=== PATIENT | female | born 1940 | race Caucasian/White ===

== ENCOUNTER 2016-08-04 09:10 | Day surgery (SDC) | payer MEDICARE ==
[~2016-08-04 09:10] MED LIST: ALPRAZolam 0.25 MG TAB PO PRN; ALPRAZolam 0.5 MG TAB PO PRN; ASPIRIN 325 MG TAB PO STA; ATORVASTATIN 80 MG TAB PO STA; NITROGLYCERIN SL TABS 0.4 MG TAB SUBLINGUAL PRN; SODIUM CHLORIDE 0.9% 1,000 ML in EMPTY BAG 1 BAG IV ONE
[2016-08-04 10:11] LABS: Calcium 9.6 mg/dL (8.4-10.2); Potassium 4.4 mmol/L (3.5-5.1)
[2016-08-04 10:17] VITALS: TEMP 98.3
[2016-08-04] MEDS ORDERED: LIDOCAINE 2% INJ 20 MG/ML (20 ML MDV) ONE (10:50)
[2016-08-04 10:55] LABS: Basophils # (A) 0.1 k/uL (0-0.2); Basophils % (A) 1 %; CH 28.1; CHCM 30.3; Eosinophils # (A) 0.6 k/uL (0-0.7); Eosinophils % (A) 9 %; HCT 38.6 % (34.0-46.0); HDW 2.54; HGB 11.8 gm/dL (11.4-16.0); Hypochromasia Moderate; Luc # (Auto) 0.16; Luc % (Auto) 2; Lymphocytes # (A) 1.1 k/uL (1.0-4.8); Lymphocytes % (A) 17 %; MCH 28.5 pg (25.0-35.0); MCHC 30.6 g/dL (31.0-37.0); MCV 93.2 fL (80.0-100.0); Mean Platelet Volume 8.6; Monocytes # (A) 0.3 k/uL (0-1.0); Monocytes % (A) 5 %; Neutrophils # (A) 4.5 k/uL (1.3-7.7); Neutrophils % (A) 66 %; RBC 4.15 m/uL (3.80-5.40); RDW 14.6 % (11.5-15.5); WBC 6.7 k/uL (3.8-10.6); WBC (Perox) 6.75
[2016-08-04] MEDS ORDERED: MIDAZOLAM 2 MG/2 ML VIAL ONE (11:18)
[2016-08-04] MEDS ORDERED: diphenhydrAMINE 50 MG/ML 1 ML VIAL ONE (11:19)
[2016-08-04] MEDS ORDERED: diphenhydrAMINE 50 MG/ML 1 ML VIAL IVP ONE ×2 (11:20→11:22)
[2016-08-04] MEDS ORDERED: MIDAZOLAM 2 MG/2 ML VIAL IVP ONE ×2 (11:20→11:21)
[2016-08-04] MEDS ORDERED: LIDOCAINE 2% INJ 20 MG/ML SQ ONE (11:22)
[2016-08-04] MEDS ORDERED: NITROGLYCERIN SL TABS 0.4 MG TAB SUBLINGUAL ONE ×2 (11:26→11:27)
[2016-08-04] MEDS ORDERED: IODIXANOL 320 MG/ML 100 ML IV ONE (11:43)
[2016-08-04] MEDS ORDERED: SODIUM CHLORIDE 0.9% 1,000 ML IV ONE (11:48)
[2016-08-04] MEDS ORDERED: RX INFO: IV CONTRAST WAS GIVEN 1 EACH MISC MISCELLANE PRN (12:00)
[2016-08-04] MEDS ORDERED: SODIUM CHLORIDE 0.9% 1,000 ML IV SCH (12:00)
[2016-08-04 15:43] VITALS: RESP 16
[2016-08-04 16:53] VITALS: BP 125/59
[2016-08-04 16:54] VITALS: PULSE 74
[2016-08-04] MEDS ORDERED: ATORVASTATIN 40 MG TAB PO SCH (21:00)
--- NOTE | 2016-08-04 22:42 | CC ---
DATE OF SERVICE: 08/04/2016 PROCEDURE: Left heart catheterization and coronary angiography. PERFORMED BY: Dr. Shena Bear. CLINICAL INFORMATION: Mrs. Malia Garcia is a 75-year-old lady with a known history of hypertension and hypercholesterolemia, who was seen by me in the office and I canceled a stress test that was scheduled then because of clinical evidence of significant aortic stenosis. She was advised coronary angiography and HUMPHREY and brought in for the procedure electively. Risks, benefits, options and rationale were discussed. PROCEDURE NOTE: Under local anesthesia and strict aseptic precautions, a 6 Maltese introducer was placed in the right femoral artery. I used initially a standard Marcello catheter, performed coronary angiography, but for the left coronary, I had to use a 3.5 curved catheter. I then used an Amplatz I catheter and with a regular guidewire, I crossed the lesion and checked pressures, but did not perform an LV gram. The catheter and sheath were taken out and Angio-Seal device used to secure hemostasis and she was sent to the room in stable condition. Results were discussed with the patient and her daughter. CARDIAC CATHETERIZATION FINDINGS: The left ventricular end-diastolic pressure was 22 mmHg. The peak pullback gradient across aortic valve a 72 mmHg, suggestive of severe aortic stenosis. CORONARY ANGIOGRAPHIC FINDINGS: Right coronary artery: Technically a dominant vessel, which has a 95% stenosis involving the proximal one third of the vessel in 3 separate areas and then the caliber of the vessel improves. It gives off a larger PLV, smaller PDA, both of which supply a fair amount of myocardium. The RCA is dominant, has a 95% proximal stenosis. Left main coronary artery: Mild to moderate calcification. No significant disease. Bifurcates into LAD and circumflex. Left anterior descending coronary artery: Good caliber vessel, extends along the anterior wall, has moderate to heavy calcification in the midportion, gives off a diagonal branch that has a 70% ostial stenosis and then the LAD in the midportion before and after the diagonal branch is heavily calcified, has about a 40% to 50% narrowing and distally runs all the way to the apex, supplying a sizable amount of myocardium. LAD is a graftable vessel, has a 50% to 55% mid lesion, 70% ostial lesion of the diagonal, which is also a graftable vessel with a decent caliber and size. Left posterior circumflex coronary artery: Technically a nondominant vessel that has a proximal stenosis of 70% to 80%, gives off a large obtuse marginal and then continues in the AV groove. The continuation of the circumflex in the AV groove is noted and it gives off a left atrial circumflex branch, but distally this vessel is occluded and fills somewhat late. This is a small branch and seems to fill from a [id number]-vm-lwpr collateral superior to the circumflex branch that is occluded, is actually a continuation of the groove branch after the obtuse marginal. The caliber of the vessel that opacified is somewhat slow, but the first obtuse marginal is a large graftable vessel. LEFT VENTRICULOGRAM: This was not performed. FINAL IMPRESSION: This patient has severe aortic stenosis with a peak gradient on pullback of about 72 mmHg. There is significant triple-vessel disease with a 95% proximal right coronary artery stenosis, 70% to 80% proximal circumflex nondominant stenosis with a distal occlusion of the groove branch, which not graftable, but obtuse marginal is graftable. Mid left anterior descending artery has a 55% heavily calcified lesion and a 70% diagonal lesion, which is graftable. RECOMMENDATIONS: I am recommending an aortic valve replacement with a separate graft to the diagonal, probably to LAD, circumflex marginal and distal RCA. Findings were discussed with the patient and her daughter in great detail and I have left a message for Dr. Dominguez to see the patient electively in about a week or so and to perform surgery. Patient had a carotid Doppler performed and did not reveal any hemodynamically significant lesions and this report was also enclosed for Dr. Dominguez.
--- NOTE | 2016-08-04 22:44 | LTR ---
August 04, 2016 RE: Malia Garcia Dear Dr. Arcos: Thank you for the opportunity to participate in the care of Mrs. Lama. Please find enclosed my detailed cardiac cath report for your records. This lady has significant severe aortic stenosis and triple vessel disease and I am recommending aortic valve replacement with a tissue valve and 3 to 4 bypass grafts. She will be seen by Dr. Dominguez hopefully next week. In the meantime, we will continue same medications and I have added Lipitor 40 mg daily to her regimen. I have advised her not to do any strenuous activity. Thank you for your referral and please call for questions. With kindest regards. Sincerely yours, MALLORY SHEFFIELD MD
--- NOTE | 2016-08-05 07:46 | ECHOF ---
Referral Reason:pain/shortness of breath/post procedure MEASUREMENTS -------- HEIGHT: 152.4 cm WEIGHT: 51.7 kg BP: 127/61 RVIDd: 1.9 cm (< 3.3) IVSd: 1.2 cm (0.6 - 1.1) LVIDd: 3.4 cm (3.9 - 5.3) LVPWd: 1.2 cm (0.6 - 1.1) IVSs: 1.5 cm LVIDs: 2.4 cm LVPWs: 1.4 cm LA Diam: 3.0 cm (2.7 - 3.8) LAESV Index (A-L): 26.00 ml/m Ao Diam: 3.1 cm (2.0 - 3.7) AV Cusp: 2.1 cm (1.5 - 2.6) MV EXCURSION: 16.139 mm (> 18.000) MV EF SLOPE: 45 mm/s (70 - 150) EPSS: 0.5 cm MV E Jesus: 1.21 m/s MV DecT: 226 ms MV A Jesus: 1.05 m/s MV E/A Ratio: 1.15 AV maxP.82 mmHg AV meanP.19 mmHg AR PHT: 745 ms RAP: 5.00 mmHg RVSP: 44.82 mmHg FINDINGS -------- Sinus rhythm. This was a technically good study. The left ventricular size is normal. There is borderline concentric left ventricular hypertrophy. Overall left ventricular systolic function is normal with, an EF between 60 - 65 %. The right ventricle is normal in size and function. Normal LA size by volume 22+/-6 ml/m2. The right atrium is normal in size. Aortic valve is trileaflet and is severely thickened. There is mild aortic regurgitation. There is severe aortic stenosis present. Peak/mean gradient across the Aortic Valve is 81.82mmHg / 43.19mmHg. The mitral valve leaflets are mildly thickened. Mild mitral annular calcification present. [id number] mitral regurgitation is present. Mild tricuspid regurgitation present. There is mild pulmonary hypertension. The right ventricular systolic pressure, as measured by Doppler, is 44.82mmHg. The pulmonic valve was not well visualized. The aortic root size is normal. Normal inferior vena cava with normal inspiratory collapse consistent with estimated right atrial pressure of 5 mmHg. There is no pericardial effusion. CONCLUSIONS -------- 1. Sinus rhythm. 2. There is mild aortic regurgitation. 3. There is severe aortic stenosis present. 4. Peak/mean gradient across the Aortic Valve is 81.82mmHg / 43.19mmHg. 5. The mitral valve leaflets are mildly thickened. 6. Mild mitral annular calcification present. 7. Tjtc-gk-[id number] mitral regurgitation is present. 8. Mild tricuspid regurgitation present. 9. There is mild pulmonary hypertension. 10. The right ventricular systolic pressure, as measured by Doppler, is 44.82mmHg. 11. The pulmonic valve was not well visualized. 12. This was a technically good study. 13. The aortic root size is normal. 14. Normal inferior vena cava with normal inspiratory collapse consistent with estimated right atrial pressure of 5 mmHg. 15. There is no pericardial effusion. 16. The left ventricular size is normal. 17. There is borderline concentric left ventricular hypertrophy. 18. Overall left ventricular systolic function is normal with, an EF between 60 - 65 %. 19. The right ventricle is normal in size and function. 20. Normal LA size by volume 22+/-6 ml/m2. 21. The right atrium is normal in size. 22. Aortic valve is trileaflet and is severely thickened. SOAPING DEPARTMENT SUPERVISOR: Marisela Houston RDCS
== END 2016-08-04 18:47 | disposition home or self-care (01) ==
LOC: CATHCVL 09:10 → 3OBS 11:56 → CATHCVL 18:47
PROVIDERS: ATTEND Internal Medicine Interventional Cardiology
DX: I35.0 Nonrheumatic aortic (valve) stenosis (principal); I25.10 Atherosclerotic heart disease of native coronary artery without angina pectoris; I27.2 Other secondary pulmonary hypertension; I10 Essential (primary) hypertension; E78.00 Pure hypercholesterolemia, unspecified; M19.91 Primary osteoarthritis, unspecified site; H40.9 Unspecified glaucoma; Z79.1 Long term (current) use of non-steroidal anti-inflammatories (NSAID); Z79.899 Other long term (current) drug therapy; Z87.891 Personal history of nicotine dependence
CPT/HCPCS: 93306; 93458; 80048; 85025; C1760; C1769 ×3; C1894; J2001; J2250; J1200; Q9967

== ENCOUNTER 2016-08-08 09:48 | Emergency (ER) | payer MEDICARE ==
[2016-08-08 09:52] VITALS: BP 130/60; PULSE 65; RESP 20; TEMP 97.8
--- NOTE | 2016-08-08 10:01 | ED ---
General Adult HPI - General Chief complaint: Recheck/Abnormal Lab/Rx Stated complaint: post op infection Time Seen by Provider: 08/08/16 09:53 Source: patient, RN notes reviewed Mode of arrival: ambulatory Limitations: no limitations - History of Present Illness Initial comments: 75-year-old female presented emergency department for recheck of right leg. Patient states she had a heart cath on Wednesday. Patient states she noticed some redness, bruising to her leg with no pain. She denies any swelling. She states that her daughter just wanted to make sure this was checked. Patient states the bruising is in her thigh region. She has no swelling or pain at the site or in her normal region. Patient denies any paresthesias. Patient states she always bruises easily. Patient has fever, chills. - Related Data Home Medications Medication Instructions Recorded Confirmed Atenolol [Tenormin] 50 mg PO HS 07/30/16 07/30/16 Bimatoprost [Lumigan .01% Ophth 1 drop BOTH EYES HS 07/30/16 07/30/16 Soln] Calcium Carbonate/Vitamin D3 1 each PO DAILY 07/30/16 07/30/16 [Calcium 600-Vit D3 800 Tab] Dorzolamide-Timolol 2%/0.5% 1 drop BOTH EYES BID 07/30/16 07/30/16 [dorzolamide-Timolol 2%/0.5%] Lisinopril [Prinivil] 10 mg PO HS 07/30/16 07/30/16 Naproxen Sodium (Otc, Unsure Dose) 1 tab PO DAILY 07/30/16 Pilocarpine 1% Ophth Soln [Isopto 1 drops BOTH EYES BID 07/30/16 07/30/16 Carpine 1%] acetaZOLAMIDE [Diamox Sequels] 500 mg PO DAILY 07/30/16 07/30/16 amLODIPine BESYLATE [Norvasc] 5 mg PO HS 07/30/16 07/30/16 Previous Rx's Medication Instructions Recorded Atorvastatin Calcium [Lipitor] 40 mg PO HS #60 tablet 08/04/16 Nitroglycerin Sl Tabs [Nitrostat] 0.4 mg SUBLINGUAL Q5M PRN #0 tab 08/04/16 Allergies Allergy/AdvReac Type Severity Reaction Status Date / Time No Known Allergies Allergy Verified 08/08/16 09:52 Review of Systems ROS Statement: Those systems with pertinent positive or pertinent negative responses have been documented in the HPI. ROS Other: All systems not noted in ROS Statement are negative. Past Medical History Past Medical History: Coronary Artery Disease (CAD), Chest Pain / Angina, Eye Disorder, Hearing Disorder / Deafness, Hypertension, Osteoarthritis (OA), Respiratory Disorder Additional Past Medical History / Comment(s): RECENT ABN EKG. OCC CP, SHORTNESS OF BREATH. HX SEASONAL BRONCHITIS.GLAUCOMA. GETS DIZZY IF LYING FLAT FOR TOO LONG. History of Any Multi-Drug Resistant Organisms: None Reported Past Surgical History: Heart Catheterization Additional Past Surgical History / Comment(s): EXC CATARACTS. HEART CATH, TEAR DUCT STENT TO HER LEFT EYE Past Anesthesia/Blood Transfusion Reactions: Motion Sickness Past Psychological History: No Psychological Hx Reported Additional Psychological History / Comment(s): STRESS R/T DAUGHTER'S FAMILY PROBLEMS Smoking Status: Former smoker Past Alcohol Use History: None Reported Additional Past Alcohol Use History / Comment(s): SMOKED 50 YEARS, 1 PPD, QUIT 2010 Past Drug Use History: None Reported - Past Family History Mother Family Medical History: No Reported History General Exam Limitations: no limitations General appearance: alert, in no apparent distress Head exam: Present: atraumatic, normocephalic, normal inspection Respiratory exam: Present: normal lung sounds bilaterally. Absent: respiratory distress, wheezes, rales, rhonchi, stridor Cardiovascular Exam: Present: regular rate, normal rhythm, normal heart sounds. Absent: systolic murmur, diastolic murmur, rubs, gallop, clicks Extremities exam: Present: other (Right groin, more region there is a large amount of ecchymosis with no swelling and no tenderness there is no warmth there is no erythema. The leg is neurovascularly intact.) Course Vital Signs 08/08/16 09:50 Temperature 97.8 F Pulse Rate 65 Respiratory 20 Rate Blood Pressure 130/60 O2 Sat by Pulse 98 Oximetry Medical Decision Making - Medical Decision Making 75-year-old female presented emergency from her recheck right leg. Patient has area of ecchymosis status post heart cath 4 days ago. There is no evidence of pain, swelling to the site there is no concerns for pseudoaneurysm. There is no concerning for infection. Patient has normal ecchymosis after heart cath. Patient will be discharged at this time. Disposition Clinical Impression: Ecchymosis Disposition: HOME SELF-CARE Condition: Stable Instructions: Ecchymosis (ED) Additional Instructions: Please return to the Emergency Department if symptoms worsen or any other concerns. Referrals: Enoch Arcos MD [Primary Care Provider] - 1-2 days Time of Disposition: 10:01
== END 2016-08-08 10:20 | disposition home or self-care (01) ==
LOC: EC 09:48
DX: S70.11XA Contusion of right thigh, initial encounter (principal); Z98.890 Other specified postprocedural states; X58.XXXA Exposure to other specified factors, initial encounter; I25.10 Atherosclerotic heart disease of native coronary artery without angina pectoris; I10 Essential (primary) hypertension; M19.90 Unspecified osteoarthritis, unspecified site; H40.9 Unspecified glaucoma; Z79.1 Long term (current) use of non-steroidal anti-inflammatories (NSAID); Z79.899 Other long term (current) drug therapy; Z87.891 Personal history of nicotine dependence
CPT/HCPCS: 99283

== ENCOUNTER → 2016-09-03 | Outpatient (CLI) | payer MEDICARE ==
[2016-09-03 08:50] LABS: EKG EKG PERFORMED
[2016-09-03 09:57] LABS: INR 1.1 (<1.1); Partial Thromboplastin Time 24.3 sec (22.0-30.0); Prothrombin Time 10.8 sec (9.0-12.0)
[2016-09-03 10:00] LABS: CHCM 30.4; HCT 33.1 % (34.0-46.0); HGB 10.2 gm/dL (11.4-16.0); Hypochromasia Moderate; MCH 28.5 pg (25.0-35.0); MCHC 30.8 g/dL (31.0-37.0); MCV 92.5 fL (80.0-100.0); Mean Platelet Volume 9.8; RBC 3.58 m/uL (3.80-5.40); RDW 14.5 % (11.5-15.5); WBC 5.5 k/uL (3.8-10.6)
[2016-09-03 10:06] LABS: ALT 43 U/L (9-52); AST 31 U/L (14-36); Alkaline Phosphatase 85 U/L (38-126); Anion Gap 11 mmol/L; Blood Urea Nitrogen 27 mg/dL (7-17); Calcium 9.6 mg/dL (8.4-10.2); Carbon Dioxide 21 mmol/L (22-30); Chloride 111 mmol/L (98-107); Cholesterol 146 mg/dL (<200); Glucose 91 mg/dL (74-99); HDL Cholesterol 65 mg/dL (40-60); Non-African American GFR(MDRD) 40 (>60 ml/min/1.73 sqM); Potassium 4.8 mmol/L (3.5-5.1); Sodium 143 mmol/L (137-145); Total Bilirubin 0.7 mg/dL (0.2-1.3); Total Protein 6.8 g/dL (6.3-8.2); Triglycerides 85 mg/dL (<150)
[2016-09-03 10:50] LABS: Appearance,Urine Cloudy (Clear); Bacteria,Urine Many /hpf; Bilirubin,Urine Negative (Negative); Glucose,Urine (UA) Negative (Negative); Ketones,Urine Negative (Negative); Leukocyte Esterase,Urine Large (Negative); Mucus,Urine Rare /hpf; Nitrite,Urine Positive (Negative); Particle Count 56111; Protein,Urine Trace (Negative); RBC,Urine 24 /hpf (0-5); Specific Gravity,Urine 1.012 (1.001-1.035); Squamous Epithelial Cell,Urine 12 /hpf (0-4); UA Billing (MACRO vs. MICRO) MICRO; Urobilinogen,Urine <2.0 mg/dL (<2.0); WBC,Urine 124 /hpf (0-5)
--- NOTE | 2016-09-03 10:59 | XR ---
EXAMINATION TYPE: XR chest 2V DATE OF EXAM: 09/03/2016 10:54 AM COMPARISON: 11/21/2008 TECHNIQUE: PA and lateral views submitted. HISTORY: Preop FINDINGS: The lungs are clear and there is no pneumothorax, pleural effusion, or focal pneumonia. Heart is ma rkedly enlarged. Hypertrophic and degenerative change of the spine. Hyperinflation suggests COPD. Hillary pical pleural thickening noted. Linear changes at the right lung base compatible scarring or atelecta sis. IMPRESSION: 1. No acute process. Stable cardiomegaly.
[2016-09-03 12:15] LABS: Hemoglobin A1C 5.5 % (4.2-6.1)
[2016-09-03 15:17] LABS: Hepatitis B Surface Ag Index 0.06
[2016-09-03 15:23] LABS: Hepatitis B Core IgM Index 0.04
[2016-09-03 15:34] LABS: Hepatitis C Virus IgG Index 0.03
[2016-09-03 15:49] LABS: Hepatitis C Virus IgG Ab Negative (Negative)
--- NOTE | 2016-09-09 14:03 | P.VSCSTY ---
Greater Saphenous Vein Mapping This is bilateral lower extremity greater saphenous vein mapping. Date of service 09/03/2016 Vein quality and ultrasound appearance both greater saphenous veins appear to be very small, especially in the lower leg. The upper thighs May be adequate. Close of the knee they get very anterior.. Vein size groin right 5.8 x 4.3 groin left 8.0 x 5.9 High thigh right 2.6 x 2.3 high thigh left 2.9 x 3.0 Mid thigh right 2.2 x 1.7 mid thigh left 3.4 x 2.8 Above-knee right moves anterior 2.2 x 1.9 above-knee left moves anterior 3.8 x 3.0 Below knee right anterior 2.3 x 1.5 below-knee left anterior 2.3 x 2.2 Mid calf right 2.1 x 1.6 mid calf left 2.2 x 1.8 Ankle right 2.0 x 1.9 ankle left 1.9 x 1.7 Impression small greater saphenous veins bilaterally. Mid and upper thighs may be usable. There may be some usable vein in the anterior branch of the left in the area about the knee. Very questionable vein throughout..
--- NOTE | 2016-09-09 14:04 | P.ARTDOP ---
Arterial Doppler LOWER EXTREMITY ARTERIAL DOPPLER: DATE OF SERVICE: 09/03/2016 Reason for study: Pre-CABG. Doppler waveforms: Multiphasic to the ankle level bilaterally.. Pulse volume recording: []. Pressure gradients: None significant. Ankle-brachial indices: 0.87 on the right and 1.05 on the left. Toe pressures: [] on the right, [] on the left Impression: Possible mild right SFA disease. Normal study otherwise..
== END | disposition home or self-care (01) ==
LOC: LABPAT 08:44
PROVIDERS: ATTEND Thoracic Surgery (Cardiothoracic Vascular Surgery)
DX: Z01.818 Encounter for other preprocedural examination (principal); I51.7 Cardiomegaly
CPT/HCPCS: 71020; 80053; 80061; 80074; 81001; 83036; 83735; 83880; 84443; 84484; 85027; 85610; 85730; 86850; 86900; 86901; 86920; 87070; 87077; 87086; 87186; 93005; 93923; 93970; 94150

== ENCOUNTER 2016-09-08 05:50 | Inpatient (IN) | payer MEDICARE ==
[2016-09-03 09:59] VITALS: BMI 22.4
[~2016-09-08 05:50] MED LIST changes: +ALBUMIN HUMAN 25% 50 ML IV ONE; +ALBUMIN HUMAN 5% 500 ML IVPB ONE; -ALPRAZolam 0.25 MG TAB PO PRN; -ALPRAZolam 0.5 MG TAB PO PRN; +AMINOCAPROIC ACID 250 MG/ML 20 ML VIAL IV ONE; +AMINOCAPROIC ACID 5,000 MG in DEXTROSE 5% IN WATER 50 ML IV ONE; -ASPIRIN 325 MG TAB PO STA; +ASPIRIN 81 MG CHEW PO ONE; +ATORVASTATIN 10 MG TAB PO ONE; -ATORVASTATIN 80 MG TAB PO STA; +CALCIUM CHLORIDE 100 MG/ML 10 ML SYRINGE IV ONE; +CHLORHEXIDINE GLUCONATE 15 ML CUP MUCOUS MEM ONE; +CLEVIDIPINE BUTYRATE 25 MG in EMPTY BAG 1 BAG IV ONE; +DEXTROSE 5% IN WATER 1,000 ML with POTASSIUM CHLORIDE 110 MEQ, MAGNESIUM SULFATE 16 MEQ... IV ONE; +DEXTROSE 5% IN WATER 1,000 ML with POTASSIUM CHLORIDE 25 MEQ, SODIUM CHLORIDE 4MEQ/ML V... IV ONE; +HEPARIN SODIUM 1,000 UNIT/ML VIAL IV ONE; +HEPARIN SODIUM,PORCINE 5,000 UNIT in SODIUM CHLORIDE 0.9% 500 ML IV ONE; +INSULIN REGULAR 100 UNIT in SODIUM CHLORIDE 0.9% 100 ML IV ONE; +LACTATED RINGERS 1,000 ML IV ONE; +MAGNESIUM SULFATE MG 500 MG/ML VIAL IV ONE; +MANNITOL 25% 12.5 GM/50 ML VIAL IV ONE; +METOPROLOL TARTRATE 12.5 MG TAB PO ONE; +MUPIROCIN 2% OINT 22 GM TUBE NASAL ONE; -NITROGLYCERIN SL TABS 0.4 MG TAB SUBLINGUAL PRN; +NITROGLYCERIN-D5W PMX 25 MG/250 ML BTL IV ONE; +NITROGLYCERIN-D5W PMX 50 MG in DEXTROSE/WATER 1 250ML.BAG IV ONE; +NOREPINEPHRINE 4 MG in SODIUM CHLORIDE 0.9% 250 ML IV ONE; +PAPAVERINE 360 MG in SODIUM CHLORIDE 0.9% 90 ML IV ONE; +PHENYLEPHRINE 40 MG in SODIUM CHLORIDE 0.9% 250 ML IV ONE; +PHENYLEPHRINE-0.9% NACL SYG 1 MG/10 ML SYRINGE IV ONE; +PROPOFOL 50 ML IV ONE; +PROTAMINE SULFATE 10 MG/ML 25 ML VIAL IV ONE; +PROTAMINE SULFATE 250 MG in EMPTY BAG 1 BAG IV ONE; +SODIUM BICARB 8.4% 50 ML SYR (1 MEQ/ML) IV ONE; +SODIUM CHLORIDE 0.9% 1,000 ML IV ONE; -SODIUM CHLORIDE 0.9% 1,000 ML in EMPTY BAG 1 BAG IV ONE; +SODIUM CHLORIDE 0.9% MISCELLANE ONE; +THROMBIN MISCELLANE ONE; +VANCOMYCIN 500 MG MISCELLANE ONE; +[UNRECOGNIZED DRUG - OTHER] MISCELLANE ONE; +ceFAZolin 1,000 MG in SODIUM CHLORIDE 0.9% IRRIGATIO 1,000 ML IRRIGATION ONE; +ceFAZolin 2,000 MG in SODIUM CHLORIDE 0.9% 30 ML IVPB ONE
[2016-09-08 06:26] VITALS: BP 132/60; PULSE 62; RESP 16; TEMP 98.6
[2016-09-08] MEDS ORDERED: ALBUMIN HUMAN 5% 250 ML BOTTLE IVPB ONE (08:29)
[2016-09-08] MEDS ORDERED: SODIUM BICARB 8.4% 50 ML SYR (1 MEQ/ML) ONE (08:29)
[2016-09-08] MEDS ORDERED: fentaNYL (PF) 50 MCG/ML 50 ML VIAL ONE (08:29)
[2016-09-08] MEDS ORDERED: HEPARIN SODIUM 1,000 UNIT/ML VIAL ONE (08:29)
[2016-09-08] MEDS ORDERED: ceFAZolin 1,000 MG VIAL ONE (08:29)
[2016-09-08] MEDS ORDERED: HEPARIN SODIUM,PORCINE 10,000 UNIT/ML 1 ML VIAL ONE (08:29)
[2016-09-08] MEDS ORDERED: SODIUM CHLORIDE 0.9% IRRIG 1,000 ML BTL IRRIGATION ONE (08:29)
[2016-09-08] MEDS ORDERED: PROTAMINE SULFATE 10 MG/ML 25 ML VIAL IV ONE (08:29)
[2016-09-08] MEDS ORDERED: ELECTROLYTE-R (PH 7.4) 1,000 ML IV.SOLN IV ONE (08:29)
[2016-09-08] MEDS ORDERED: ePHEDrine 50 MG/ML 1 ML AMP ONE (08:29)
[2016-09-08] MEDS ORDERED: PHENYLEPHRINE-0.9% NACL SYG 1 MG/10 ML SYRINGE ONE (08:29)
[2016-09-08] MEDS ORDERED: fentaNYL (PF) 50 MCG/ML 2 ML AMP ONE (08:29)
[2016-09-08] MEDS ORDERED: MIDAZOLAM 2 MG/2 ML VIAL ONE (08:29)
[2016-09-08] MEDS ORDERED: MAGNESIUM SULFATE 4 MEQ/ML 2 ML VIAL ONE (08:29)
[2016-09-08] MEDS ORDERED: CALCIUM CHLORIDE 100 MG/ML 10 ML SYRINGE ONE (08:29)
[2016-09-08] MEDS ORDERED: ETOMIDATE 2 MG/ML 10 ML VIAL ONE (08:29)
[2016-09-08] MEDS ORDERED: LIDOCAINE 2% SYG (PF) 100 MG/5 ML ONE (08:29)
[2016-09-08] MEDS ORDERED: SUCCINYLCHOLINE CHLORIDE 100 MG/5 ML SYR IV ONE (08:29)
[2016-09-08] MEDS ORDERED: VECURONIUM 10 MG VIAL IV ONE (08:29)
[2016-09-08] MEDS ORDERED: HEPARIN SODIUM,PORCINE 5,000 UNIT/ML 1 ML VIAL ONE (08:29)
[2016-09-08 08:57] LABS: Glucose,Whole Blood 101 mg/dL (75-99)
[2016-09-08] MEDS ORDERED: DILTIAZEM 125 MG in SODIUM CHLORIDE 0.9% 100 ML IV SCH (09:00)
[2016-09-08] MEDS ORDERED: SODIUM CHLORIDE 0.9% 500 ML with HEPARIN SODIUM,PORCINE 5,000 UNIT IRRIGATION ONE ×2 (09:52)
[2016-09-08] MEDS ORDERED: PAPAVERINE 360 MG in SODIUM CHLORIDE 0.9% 90 ML IRRIGATION ONE (09:53)
[2016-09-08 10:34] LABS: Glucose,Whole Blood 130 mg/dL (75-99)
[2016-09-08 11:04] LABS: Glucose,Whole Blood 305 mg/dL (75-99)
[2016-09-08 11:50] LABS: Glucose,Whole Blood 346 mg/dL (75-99)
[2016-09-08 12:31] LABS: Glucose,Whole Blood 280 mg/dL (75-99)
[2016-09-08 13:16] LABS: Glucose,Whole Blood 252 mg/dL (75-99)
[2016-09-08 13:36] LABS: Glucose,Whole Blood 244 mg/dL (75-99)
[2016-09-08 13:55] LABS: Glucose,Whole Blood 207 mg/dL (75-99)
[2016-09-08 14:44] LABS: Glucose,Whole Blood 131 mg/dL (75-99)
[2016-09-08 14:58] LABS: Glucose,Whole Blood 133 mg/dL (75-99)
[2016-09-08] MEDS ORDERED: SODIUM CHLORIDE 0.9% 99 ML with VASOPRESSIN 20 UNIT IV SCH ×2 (15:00)
[2016-09-08] MEDS ORDERED: VASOPRESSIN IV STA ×2 (15:13)
[2016-09-08] MEDS ORDERED: SODIUM CHLORIDE 0.9% IV STA ×2 (15:13)
[2016-09-08 15:37] LABS: Glucose,Whole Blood 131 mg/dL (75-99)
[2016-09-08] MEDS ORDERED: THROMBIN (BOVINE) 5,000 UNIT VIAL TOPICAL ONE (15:54)
[2016-09-08] MEDS ORDERED: GELATIN SPONGE,ABSORB (LARGE) 1 EACH SPONGE TOPICAL ONE (15:55)
[2016-09-08 15:59] LABS: Glucose,Whole Blood 136 mg/dL (75-99)
[2016-09-08] MEDS ORDERED: SODIUM CHLORIDE 0.9% 1,000 ML with SODIUM BICARB (1 MEQ/ML) 150 ML IV ONE ×2 (16:45)
[2016-09-08 16:58] LABS: Glucose,Whole Blood 106 mg/dL (75-99)
[2016-09-08 17:26] LABS: Glucose,Whole Blood 62 mg/dL (75-99)
[2016-09-08] MEDS ORDERED: Potassium Replacement Protocol 1 EACH MISC MISCELLANE PRN (17:38)
[2016-09-08] MEDS ORDERED: Magnesium Replacement Protocol 1 EACH MISC MISCELLANE PRN (17:38)
[2016-09-08] MEDS ORDERED: NOREPINEPHRINE 4 MG in SODIUM CHLORIDE 0.9% 250 ML IV SCH (17:38)
[2016-09-08] MEDS ORDERED: LACTATED RINGERS 1,000 ML IV SCH (17:38)
[2016-09-08] MEDS ORDERED: CLEVIDIPINE BUTYRATE 25 MG in EMPTY BAG 1 BAG IV SCH (17:38)
[2016-09-08] MEDS ORDERED: PROPOFOL 500 MG in EMPTY BAG 1 BAG IV SCH (17:38)
[2016-09-08] MEDS ORDERED: CALCIUM GLUCONATE 2,000 MG in SODIUM CHLORIDE 0.9% 100 ML IVPB PRN (17:38)
[2016-09-08] MEDS ORDERED: MORPHINE SULFATE 2 MG/ML SYRINGE IVP PRN (17:38)
[2016-09-08] MEDS ORDERED: ONDANSETRON 4 MG/2 ML VIAL IVP PRN (17:38)
[2016-09-08] MEDS ORDERED: INSULIN REGULAR 100 UNIT in SODIUM CHLORIDE 0.9% 100 ML IV SCH (17:38)
[2016-09-08] MEDS ORDERED: BENZOCAINE/MENTHOL LOZENG 1 EACH LOZENGE MUCOUS MEM PRN (17:38)
[2016-09-08] MEDS ORDERED: Phosphorus Replacement Protoco 1 EACH MISC MISCELLANE PRN (17:38)
[2016-09-08] MEDS ORDERED: IPRATROPIUM-ALBUTEROL 3 ML NEB INHALATION SCH (17:38)
[2016-09-08] MEDS ORDERED: ALBUMIN HUMAN 5% 250 ML in EMPTY BAG 1 BAG IVPB PRN (17:38)
[2016-09-08] MEDS ORDERED: METOCLOPRAMIDE 5 MG/ML 2 ML VIAL IVP PRN (17:38)
[2016-09-08] MEDS ORDERED: ALBUMIN HUMAN 5% 0 ML IVPB ONE (17:45)
[2016-09-08] MEDS ORDERED: ceFAZolin 2 GM in SODIUM CHLORIDE 0.9% 100 ML IVPB SCH (18:00)
[2016-09-08] MEDS ORDERED: ACETAMINOPHEN IV (For NPO) 1,000 MG in EMPTY BAG 1 BAG IVPB SCH (18:00)
--- NOTE | 2016-09-08 19:37 | P.CON ---
Consult Note - . Assessment/Plan:: from bypass around 2 pm; initially patient did well; right ventricular failure occured around 2:45; started inotropes levophed,epinephrine milrinone and vasopressin; called cardiology to evaluate loree; aortic valve was well seated; minimal mitral regurgitation; good left ventricular function; right ventricular function improved on inotropes; persistant coagulopathy started at 3 pm; despite continous blood transfusion of packed cells ffp and cryoprecitate dic continued; we had severe inability to procur platelets which made our ability to control the dic difficult; we only received 6 units of platelets; the additional 20 units of platelets which we ordered never arrived from outside the hospital.
[2016-09-08] MEDS ORDERED: HEPARIN SODIUM,PORCINE 5,000 UNIT/ML 1 ML VIAL SQ SCH (23:00)
[2016-09-09] MEDS ORDERED: PANTOPRAZOLE 40 MG/10 ML VIAL IVP SCH (09:00)
[2016-09-09] MEDS ORDERED: ATORVASTATIN 40 MG TAB PO SCH (09:00)
[2016-09-09] MEDS ORDERED: METOPROLOL TARTRATE 12.5 MG TAB PO SCH (09:00)
[2016-09-09] MEDS ORDERED: ASPIRIN 325 MG TAB PO SCH (09:00)
[2016-09-09] MEDS ORDERED: CLOPIDOGREL 75 MG TAB PO SCH (12:00)
[2016-09-09] MEDS ORDERED: BISACODYL 10 MG SUPP RECTAL PRN (14:18)
[2016-09-09] MEDS ORDERED: MAGNESIUM HYDROXIDE 2,400 MG/10 ML CUP PO PRN (14:18)
[2016-09-09] MEDS ORDERED: IPRATROPIUM-ALBUTEROL 3 ML NEB INHALATION PRN (14:19)
[2016-09-09] MEDS ORDERED: SENNOSIDES-DOCUSATE SODIUM 1 EACH TAB PO SCH (21:00)
[2016-09-09] MEDS ORDERED: HYDROcodone/APAP 5-325MG 1 EACH TAB PO PRN ×2 (23:59)
--- NOTE | 2016-09-19 12:13 | OP ---
DATE OF SERVICE: 09/08/2016 SURGEON: Vance Everett MD [employer]CHOOL CROSSING GUARD: PREOPERATIVE DIAGNOSIS: Critical aortic stenosis, 3-vessel coronary artery disease. POSTOPERATIVE DIAGNOSIS: Critical aortic stenosis, 3-vessel coronary artery disease. OPERATION: Aortic valve replacement with a #21 mm Magna Ease bioprosthetic aortic valve, coronary artery bypass grafting x3 with left internal mammary artery, left anterior descending artery, reverse saphenous vein grafts off the aorta to the circumflex artery and the right coronary artery with bilateral endoscopic vein harvesting and clip ligation of the left atrial appendage with a #35 mm AtriClip and intraoperative HUMPHREY. ANESTHESIA: General. ESTIMATED BLOOD LOSS: About 1000 mL. SPECIMENS REMOVED: COMPLICATIONS: OPERATIVE FINDINGS: DESCRIPTION OF PROCEDURE: Patient was brought to the operative room, placed in supine position. Following administration of general endotracheal anesthetic, placement of a Denver-Danelle catheter, arterial line, adequate IV access and a Galarza catheter, patient was carefully prepped and draped in a sterile fashion using beta paint and sterile towels. Saphenous vein was harvested from both lower extremities with endovascular vein harvesting technique. All branches doubly clipped and divided and the incisions closed in 2 layers. Midline incision in chest made, sternum divided. Pericardium was opened. Heart size was normal caliber. The aorta was soft. The left pleural space was then opened. Left internal mammary artery harvested as a pedicle from the xiphoid to left subclavian vein. It was of 1.8 mm quality but with good flow. Patient was heparinized ( ). The aorta and vena cava were cannulated. Antegrade and retrograde cardioplegia catheter was positioned in the ascending aorta and then coronary sinus. The patient was placed on bypass. Crossclamp placed. The heart arrested with 1 L of antegrade followed by 500 mL retrograde cardioplegia. Retrograde cardioplegia was delivered 300 to 500 mL at the end of each 20 minute intervals. The base of the left atrial appendage was measured. It measured to a 35 mm AtriClip. The clip was opened, secured at the base, officially obliterating the left atrial appendage. Next, distal anastomoses were constructed, reverse saphenous vein graft and anastomosis to the distal right coronary artery was constructed using a 7-0 Prolene running suture. Caliber of this vessel was 1.5 to 1.75 mm. Next, saphenous vein anastomosis to the circumflex artery was constructed in similar fashion. This is a 1.5 to 1.75 mm. Next, the left internal mammary artery was beveled and distal anastomosis to mid left anterior descending artery constructed using 8-0 Prolene running suture. Caliber of this vessel was 1.5 to 1.75 mm. Next, a transverse aortotomy incision was made 2 cm distal to the take off of the right coronary artery. Hand held retractor was placed. The aortic valve was trileaflet but extremely heavily calcified. The valve was carefully excised, all leaflets, the annulus debrided and it was irrigated out copiously with 2 to 3 L of cold saline. It sized to a 21 mm Magna Ease bioprosthetic aortic valve. The valve was brought into the field, prepared in the usual fashion as 2-0 Tycron pledged sutures were placed, ventricularly based circumferentially. These were then passed through the sewing cuff of the valve which was then seated and seated well. All sutures were then secured using the core knot ligature system. Aortotomy incision was closed in a double layered pledgeted 4-0 Prolene vertical mattress followed by an over and over stitch from both sides. At this point 2 proximal anastomoses were constructed on the ascending aorta using 6-0 Prolene running suture. Patient was placed head down, the aortic root was vented, warm blood retrograde cardioplegia was run. Crossclamp was then removed once vein graft de-aired. It was then noted to me from perfusion as well as during the early pump run that the patient had been acidotic throughout requiring 4 to 5 amps of bicarb. The patient was also very vasodilated during the pump run requiring multiple bags of Vick-Synephrine drip and this was unusual as the pump run was very smooth and the case moved along well. At this point, once patient was then paced to DDD at 80 and with some Levophed drip, the patient was brought off bypass. The patient came off bypass with good hemodynamics, protamine was then delivered and as the patient was starting to be decannulated, there was evidence of no clot in the chest. An additional dose of protamine was delivered. At this point, platelets and FFP were given and then the ACT was then checked. At first it was well over 500 and after the second go of protamine, the ACT did come down to approximately 170. At this point, an additional round of platelets and FFP were ordered; however, these were not readily available and had to be brought from an outlying institution. As the patient started the ( ), she soon thereafter became oozy and there was no evidence of any clot. Another ACT was now run and it was over 9999. At this point, it appeared though that she was suffering from cardiogenic shock with liver failure. During this whole event, the ventricle looked normal in function, on HUMPHREY that right ventricle looked normal on function, the aortic valve was working well, volume was given; however, the patient did not make any clot and was continuing to just exsanguinate through a slow ooze. Products were ordered, platelets, FFP but the feeling was that the lady was suffering from an acute shocked liver, because of the considerable acidosis throughout the pump run as well as vasodilatation. After talking to the family, more attempts were made. Products had not arrived yet, FFP, platelets and cryoprecipitate and then shortly thereafter the chest was left opened. The patient was going to be transported to the ICU with an open chest, not to put any pressure on the heart, even though the heart was not distended. She fibrillated. Upon fibrillating, the patient could not be resuscitated after approximately 20 minutes of CPR and was pronounced in the operating room. The family was then notified and no post was requested.
[2016-09-23 13:52] LABS: ABG Base Excess -6.3 mmol/L; ABG HCO3 18 mmol/L (21-25); ABG Oxygen Saturation 92.4 % (94-97); ABG PCO2 36 mmHg (35-45); ABG PH 7.33 (7.35-7.45); ABG PO2 69 mmHg (83-108); ABG TCO2 20 mmol/L (19-24)
[2016-09-23 13:53] LABS: ABG Base Excess -9.2 mmol/L; ABG HCO3 20 mmol/L (21-25); ABG Oxygen Saturation 99.5 % (94-97); ABG PCO2 62 mmHg (35-45); ABG PH 7.13 (7.35-7.45); ABG PO2 220 mmHg (83-108); ABG TCO2 22 mmol/L (19-24)
[2016-09-23 13:54] LABS: ABG Base Excess -7.6 mmol/L; ABG HCO3 17 mmol/L (21-25); ABG Oxygen Saturation 99.8 % (94-97); ABG PCO2 33 mmHg (35-45); ABG PH 7.33 (7.35-7.45); ABG PO2 230 mmHg (83-108); ABG TCO2 18 mmol/L (19-24)
[2016-09-23 13:56] LABS: ABG Base Excess -4.3 mmol/L; ABG HCO3 21 mmol/L (21-25); ABG Oxygen Saturation 99.6 % (94-97); ABG PCO2 47 mmHg (35-45); ABG PH 7.28 (7.35-7.45); ABG PO2 209 mmHg (83-108); ABG TCO2 23 mmol/L (19-24)
[2016-09-23 13:58] LABS: ABG Base Excess -1.9 mmol/L; ABG HCO3 22 mmol/L (21-25); ABG Oxygen Saturation 99.9 % (94-97); ABG PCO2 34 mmHg (35-45); ABG PH 7.43 (7.35-7.45); ABG PO2 331 mmHg (83-108); ABG TCO2 23 mmol/L (19-24)
[2016-09-23 13:59] LABS: ABG HCO3 19 mmol/L (21-25); ABG PCO2 29 mmHg (35-45); ABG PH 7.44 (7.35-7.45); ABG PO2 276 mmHg (83-108)
[2016-09-23 14:00] LABS: ABG Base Excess -3.9 mmol/L; ABG Oxygen Saturation 99.9 % (94-97); ABG TCO2 20 mmol/L (19-24)
[2016-09-23 14:01] LABS: ABG Base Excess -4.4 mmol/L; ABG HCO3 20 mmol/L (21-25); ABG Oxygen Saturation 99.9 % (94-97); ABG PCO2 34 mmHg (35-45); ABG PH 7.39 (7.35-7.45); ABG PO2 311 mmHg (83-108); ABG TCO2 21 mmol/L (19-24)
[2016-09-23 14:02] LABS: ABG Base Excess -0.4 mmol/L; ABG HCO3 23 mmol/L (21-25); ABG Oxygen Saturation 99.9 % (94-97); ABG PCO2 36 mmHg (35-45); ABG PH 7.42 (7.35-7.45); ABG PO2 301 mmHg (83-108); ABG TCO2 25 mmol/L (19-24)
[2016-09-23 14:04] LABS: ABG Base Excess -9.7 mmol/L; ABG HCO3 17 mmol/L (21-25); ABG Oxygen Saturation 99.7 % (94-97); ABG PCO2 44 mmHg (35-45); ABG PH 7.21 (7.35-7.45); ABG PO2 242 mmHg (83-108); ABG TCO2 18 mmol/L (19-24)
[2016-09-23 14:05] LABS: ABG Base Excess -5.2 mmol/L; ABG HCO3 21 mmol/L (21-25); ABG Oxygen Saturation 99.9 % (94-97); ABG PCO2 51 mmHg (35-45); ABG PH 7.24 (7.35-7.45); ABG PO2 298 mmHg (83-108); ABG TCO2 23 mmol/L (19-24)
[2016-09-23 14:06] LABS: ABG HCO3 22 mmol/L (21-25); ABG PCO2 54 mmHg (35-45); ABG PH 7.24 (7.35-7.45); ABG PO2 348 mmHg (83-108)
[2016-09-23 14:07] LABS: ABG Oxygen Saturation 99.9 % (94-97); ABG TCO2 24 mmol/L (19-24)
[2016-09-23 14:08] LABS: ABG HCO3 19 mmol/L (21-25); ABG PCO2 48 mmHg (35-45); ABG PH 7.22 (7.35-7.45); ABG PO2 132 mmHg (83-108)
[2016-09-23 14:09] LABS: ABG Base Excess -7.8 mmol/L; ABG Oxygen Saturation 98.3 % (94-97); ABG TCO2 20 mmol/L (19-24)
[2016-09-23 14:10] LABS: ABG Base Excess -4.1 mmol/L; ABG HCO3 21 mmol/L (21-25); ABG Oxygen Saturation 94.4 % (94-97); ABG PCO2 39 mmHg (35-45); ABG PH 7.34 (7.35-7.45); ABG PO2 76 mmHg (83-108); ABG TCO2 22 mmol/L (19-24)
[2016-09-23 14:11] LABS: ABG Base Excess 2.4 mmol/L; ABG HCO3 26 mmol/L (21-25); ABG Oxygen Saturation 88.4 % (94-97); ABG PCO2 41 mmHg (35-45); ABG PH 7.43 (7.35-7.45); ABG PO2 54 mmHg (83-108); ABG TCO2 28 mmol/L (19-24)
[2016-09-23 14:13] LABS: ABG HCO3 28 mmol/L (21-25); ABG Oxygen Saturation 99.7 % (94-97); ABG PCO2 39 mmHg (35-45); ABG PH 7.47 (7.35-7.45); ABG PO2 190 mmHg (83-108); ABG TCO2 29 mmol/L (19-24)
[2016-09-23 14:15] LABS: ABG Base Excess -1.3 mmol/L; ABG HCO3 23 mmol/L (21-25); ABG Oxygen Saturation 99.9 % (94-97); ABG PCO2 38 mmHg (35-45); ABG PO2 293 mmHg (83-108); ABG TCO2 24 mmol/L (19-24)
[2016-09-23 14:17] LABS: ABG Base Excess -1.2 mmol/L; ABG HCO3 23 mmol/L (21-25); ABG PCO2 38 mmHg (35-45); ABG PO2 248 mmHg (83-108); ABG TCO2 24 mmol/L (19-24)
[2016-09-23 14:18] LABS: ABG Oxygen Saturation 99.8 % (94-97)
[2016-09-23 14:19] LABS: ABG PCO2 38 mmHg (35-45)
[2016-09-23 14:20] LABS: ABG Base Excess -1.3 mmol/L; ABG HCO3 23 mmol/L (21-25); ABG Oxygen Saturation 99.9 % (94-97); ABG PO2 293 mmHg (83-108); ABG TCO2 24 mmol/L (19-24)
== END 2016-09-08 17:57 | disposition expired | DRG 219 ==
LOC: 2ORMAIN 05:50 → 6ICU 17:21 → 2ORMAIN 17:21
PROVIDERS: ADMIT Thoracic Surgery (Cardiothoracic Vascular Surgery); ATTEND Thoracic Surgery (Cardiothoracic Vascular Surgery)
PROC: 06BP4ZZ Excision of Right Saphenous Vein, Percutaneous Endoscopic Approach (ICD-10-PCS; principal; 2016-09-08 08:00)
PROC: 02100Z9 Bypass Coronary Artery, One Artery from Left Internal Mammary, Open Approach (ICD-10-PCS; principal; 2016-09-08 08:00)
PROC: 06BQ4ZZ Excision of Left Saphenous Vein, Percutaneous Endoscopic Approach (ICD-10-PCS; principal; 2016-09-08 08:00)
PROC: B246ZZ4 Ultrasonography of Right and Left Heart, Transesophageal (ICD-10-PCS; principal; 2016-09-08 08:00)
PROC: 5A1221Z Performance of Cardiac Output, Continuous (ICD-10-PCS; principal; 2016-09-08 08:00)
PROC: 5A12012 Performance of Cardiac Output, Single, Manual (ICD-10-PCS; principal; 2016-09-08 08:00)
PROC: 021109W Bypass Coronary Artery, Two Arteries from Aorta with Autologous Venous Tissue, Open Approach (ICD-10-PCS; principal; 2016-09-08 08:00)
PROC: 02L70CK Occlusion of Left Atrial Appendage with Extraluminal Device, Open Approach (ICD-10-PCS; principal; 2016-09-08 08:00)
PROC: 02RF08Z Replacement of Aortic Valve with Zooplastic Tissue, Open Approach (ICD-10-PCS; principal; 2016-09-08 08:00)
DX: I25.10 Atherosclerotic heart disease of native coronary artery without angina pectoris (principal); K72.00 Acute and subacute hepatic failure without coma; D65 Disseminated intravascular coagulation [defibrination syndrome]; R57.0 Cardiogenic shock; H40.9 Unspecified glaucoma; E78.5 Hyperlipidemia, unspecified; I27.2 Other secondary pulmonary hypertension; I35.0 Nonrheumatic aortic (valve) stenosis; I10 Essential (primary) hypertension; Z87.891 Personal history of nicotine dependence; Z79.899 Other long term (current) drug therapy
CPT/HCPCS: 36430; 36620; 82805; 85520; 86850; 86891; 86900; 86901; 86920; 88305